=== PATIENT | female | born 1985 | race Caucasian/White ===

== ENCOUNTER 2018-06-24 22:31 | Inpatient (IN) | payer OTHER ==
[2018-06-24] MEDS ORDERED: Adacel (T-DAP) 0.5 ML SYRINGE ONE (22:35)
[2018-06-24] MEDS ORDERED: CEFAZOLIN 2 GM/50 ML BAG ONE (22:35)
[2018-06-24] MEDS ORDERED: Fentanyl 100 MCG/2 ML VIAL ONE ×2 (22:43→23:14)
[2018-06-24] MEDS ORDERED: KETAMINE 100 MG/ML (5ML VIAL) ONE (22:45)
[2018-06-24 22:50] LABS: #Lymphocytes 1.4 thou/uL (1.20-3.40); #Monocytes 0.5 thou/uL (0.11-0.59); #Neutrophils 6.3 thou/uL (1.40-6.50); %Basophils 0.2 % (0.0-1.0); %Eosinophils 0.4 % (0.0-10.0); %Monocytes 5.8 % (0.0-10.0); %Neutrophils 76.6 % (42.0-75.0); Hemoglobin 12.4 g/dL (12.0-16.0); Mean Corpuscular HGB CONC 33.7 g/dL (32.0-36.0); Mean Corpuscular Hemoglobin 32.3 pg (27.0-31.0); Mean Corpuscular Volume 95.9 fL (78.0-98.0); Mean Platelet Volume 6.4 fL (7.4-10.4); Platelet Count 286 thou/uL (130-400); RBC Distribution Width 11.2 % (11.5-14.5); Red Blood Cell (RBC) Count 3.83 mill/uL (4.20-5.40); White Blood Cell (WBC) Count 8.2 thou/uL (4.8-10.8)
[2018-06-24 22:55] LABS: Prothrombin Time 13.4 SEC (12.0-14.7)
[2018-06-24 22:56] LABS: BHCG - Serum Negative (NEGATIVE); PTT 20.3 SEC (22.9-36.1); Pregs Control Background? CLEAR/WHITE (CLR/WHITE); Pregs Control Bar Appear? YES (CONTROL BAR)
[2018-06-24 23:13] LABS: ALT (SGPT) 21 U/L (8-55); AST (SGOT) 28 U/L (5-34); Albumin 4.5 g/dL (3.5-5.0); Alcohol Less than 10 mg/dL (Less than 10); Alkaline Phosphatase 44 U/L (40-150); Anion Gap 14 mmol/L (10-20); BUN (Urea Nitrogen) 8 mg/dL (7.0-18.7); Bilirubin, Total 0.2 mg/dL (0.2-1.2); Calc. Creatinine Clearance 0 mL/min (70-130); Calcium 9.3 mg/dL (7.8-10.44); Carbon Dioxide 20 mmol/L (22-29); Chloride 109 mmol/L (98-107); Estimated GFR-MDRD Greater than 90; Globulin 2.8 g/dL (2.4-3.5); Glucose 125 mg/dL (70-105); Lipase 27 U/L (8-78); Potassium 3.1 mmol/L (3.5-5.1); Protein, Total 7.3 g/dL (6.0-8.3); Sodium 140 mmol/L (136-145)
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
[2018-06-24] MEDS ORDERED: Neomycin-Polymyxin 1 ML AMP ONE (23:28)
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
[2018-06-24] MEDS ORDERED: Gentamicin Sulfate 100 MG in Premix Bag 1 BAG IVPB SCH (23:45)
[2018-06-25] MEDS ORDERED: Meperidine HCl/PF 25 MG/ML VIAL SLOW IVP PRN (00:55)
[2018-06-25] MEDS ORDERED: Ondansetron HCl/PF 4 MG/2 ML Vial IVP PRN (00:55)
[2018-06-25] MEDS ORDERED: Promethazine HCl 25 MG/ML VIAL IM PRN (00:55)
[2018-06-25] MEDS ORDERED: Promethazine HCl 25 MG/ML VIAL SLOW IVP PRN (00:55)
[2018-06-25] MEDS ORDERED: Bupivacaine HCl 0.5%/Epinephrine 1:200,000/PF 30 ml Vial ONE (01:31)
[2018-06-25] MEDS ORDERED: Fentanyl 100 MCG/2 ML VIAL ONE (03:10)
[2018-06-25] MEDS ORDERED: Morphine 2 MG/ML SYRINGE SLOW IVP PRN (05:04)
[2018-06-25] MEDS ORDERED: Morphine 10 MG/ML VIAL SLOW IVP PRN (05:05)
[2018-06-25] MEDS ORDERED: Ondansetron PF 4 MG/2 ML Vial IVP PRN (05:05)
[2018-06-25] MEDS ORDERED: Acetaminophen 500 MG TAB PO PRN ×2 (05:06→05:07)
[2018-06-25] MEDS ORDERED: HYDROcodone/Acetaminophen 10/325 mg Tablet PO PRN (05:06)
[2018-06-25] MEDS: Ketorolac Tromethamine 30 MG/ML VIAL IVP SCH ×3 (05:44→18:19)
[2018-06-25] MEDS: Sodium Chloride 0.9% 1,000 ML IV SCH ×2 (05:46→18:23)
[2018-06-25 06:58] VITALS: BMI 21.6
[2018-06-25] MEDS: CEFAZOLIN 2 GM/50 ML-DEXTROSE 2 GM in Premix Bag 1 BAG IVPB SCH ×3 (07:18→21:35)
[2018-06-25] MEDS: HYDROcodone/Acetaminophen 10/325 mg Tablet PO PRN ×2 (07:19→12:44)
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
--- NOTE | 2018-06-25 07:52 | OP ---
DATE OF PROCEDURE: 06/25/2018 PREOPERATIVE DIAGNOSIS: Open lateral fracture dislocation of the right ankle. POSTOPERATIVE DIAGNOSIS: Open lateral fracture dislocation of the right ankle. PROCEDURES PERFORMED: 1. Irrigation and debridement of the open right ankle. 2. Open reduction and internal fixation of bimalleolar fracture of the right ankle. ANESTHESIA: General. TECHNIQUE: The patient was given preoperative IV antibiotics, taken to the operating room, and placed in the supine position. Satisfactory general anesthesia was performed. The right foot, ankle, and leg were sterilely prepped and draped in a usual fashion. After exsanguination of tourniquet, the proximal right calf was raised to 250 mmHg. The patient had a curvilinear laceration on the medial aspect of the ankle, where the medial malleolus was protruding through the skin. There was some dirt in the wound, which was physically picked out and also the ankle joint and the medial aspect of the ankle was copiously irrigated using antibiotic solution with high-speed straddle carrier operator. The medial malleolar fracture was then reduced and internally fixed with three 4.0 cannulated screws. This was all performed under fluoroscopic visualization. A longitudinal incision was made on the lateral aspect of the ankle and periosteal elevation was performed in the distal shaft. There was somewhat of comminution in the very distal aspect of the fibula that the periosteum was left intact and a 3-hole Synthes locking distal fibular plate was used for internal fixation of the lateral malleolus using two 2.7 cortical screws in the shaft. The most proximal screw in the shaft was 2.7 locking screw and there were four 2.7 locking screws distally. Again, this was all performed under fluoroscopic visualization using the C-arm. This showed good reduction of the ankle mortise. Wounds again were copiously irrigated with antibiotic solution and then closed using 2-0 Vicryl for the fat and subcutaneous tissue, and the skin was closed with 3-0 Rapide. The wounds were then infiltrated with a total of 30 mL of 0.5% Marcaine with epinephrine. Sterile dressing was applied. The tourniquet was released. The patient was awakened, extubated, and transported to recovery room in stable condition. ESTIMATED BLOOD LOSS: None. COMPLICATIONS: None. TOURNIQUET TIME: 80 minutes. Job ID: [id number]
[2018-06-25] MEDS ORDERED: Gentamicin Sulfate 100 MG in Premix Bag 1 BAG IVPB SCH ×2 (08:00→17:15)
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
[2018-06-25] MEDS ORDERED: Ketorolac Tromethamine 30 MG/ML VIAL ONE (14:41)
[2018-06-25] MEDS ORDERED: PROPOFOL 200 MG/20 ML VIAL ONE (14:41)
[2018-06-25] MEDS ORDERED: Succinylcholine Chloride 20 MG/ML 10 ml SYRINGE FS ONE (14:41)
[2018-06-25] MEDS ORDERED: ePHEDrine/0.9% NaCl/PF SYRINGE 50 mg/10 ml ONE (14:41)
[2018-06-25] MEDS ORDERED: PHENYLEPHRINE-NS 100 MCG/ML 10 ML SYRINGE ONE (14:41)
[2018-06-25] MEDS ORDERED: Dexamethasone 20 MG/5 ML VIAL ONE (14:41)
[2018-06-25] MEDS ORDERED: Lidocaine 1% PF 5 ML VIAL ONE (14:41)
[2018-06-25] MEDS ORDERED: Ondansetron PF 4 MG/2 ML Vial ONE (14:41)
[2018-06-25] MEDS ORDERED: Fluconazole 100 MG TAB PO SCH (15:00)
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
[2018-06-25] MEDS ORDERED: Milk Of Magnesia 30 ML UDCUP PO PRN (17:30)
[2018-06-25] MEDS: Promethazine 25 MG TAB PO PRN (18:27)
[2018-06-25] MEDS: Senokot 8.6 MG TAB PO SCH (18:27)
[2018-06-26] MEDS: HYDROcodone/Acetaminophen 10/325 mg Tablet PO PRN ×3 (00:33→12:44)
[2018-06-26] MEDS: Ketorolac Tromethamine 30 MG/ML VIAL IVP SCH ×3 (00:35→12:52)
[2018-06-26] MEDS: Promethazine 25 MG TAB PO PRN (02:28)
[2018-06-26] MEDS: Sodium Chloride 0.9% 1,000 ML IV SCH ×2 (02:33→10:01)
[2018-06-26] MEDS ORDERED: Polyethylene Glycol 3350 17 GM Packet PO SCH (09:00)
[2018-06-26] MEDS ORDERED: Fluconazole 100 MG TAB PO SCH (09:00)
[2018-06-26] MEDS: Senokot 8.6 MG TAB PO SCH (09:56)
--- NOTE | 2018-06-26 11:07 | DIS ---
DATE OF ADMISSION: 06/25/2018 DATE OF DISCHARGE: 06/26/2018 ADMIT DIAGNOSIS: Right open ankle fracture. DISCHARGE DIAGNOSIS: Right open ankle fracture. PROCEDURES: ORIF, washout, right open ankle fracture by Dr. Naik without complication. CONDITION ON DISCHARGE: Improved. STAFF: Dr. Cornelius. HOSPITAL COURSE: On postop day #2, the patient is doing well. She is complaining of some mild chest pain with deep inspiration and soreness all over. She has no dizziness. She has been up with physical therapy. She is tolerating regular food. She has had a bowel movement. She is urinating without difficulty. PHYSICAL EXAMINATION: VITAL SIGNS: She is afebrile. Vital signs are stable. CHEST: Clear. HEART: Regular rate and rhythm. ABDOMEN: Soft, nontender. Pelvis is stable. EXTREMITIES: No lower extremity edema or ischemia. Right lower extremity is dressed. ASSESSMENT: Postop irrigation, debridement, and fixation of right open ankle fracture. PLAN: Likely home today after Dr. Naik sees. We will defer pain medicine prescription to him. No need to follow up in the Trauma Clinic. Job ID: [id number]
--- NOTE | 2018-06-26 11:52 | PRG ---
DATE OF SERVICE: 06/25/2018 SUBJECTIVE: The patient is 12-hours status post ORIF with irrigation and debridement of the right open bimalleolar fracture dislocation of her right ankle. The patient is tolerating her boot well. She was able to get up out of bed and work with physical therapy utilizing crutches. The patient understands that she needs to be strictly nonweightbearing on the right foot. OBJECTIVE: VITAL SIGNS: The patient has been afebrile. Her vital signs have been stable. Her blood pressure is 121/58. EXTREMITIES: The boot is in good position. The patient is able to flex and extend all of her toes well. There is decreased sensation to light touch over the dorsum of the right foot. ASSESSMENT AND PLAN: The patient will need to continue to work with physical therapy. Again, I stressed with her that she needs to be nonweightbearing on the right foot and allow the fractures to heal. The patient is already controlling the pain with p.o. medications, so that will not be a problem as far as holding her up from discharge. I would like to finish out the prophylactic antibiotics that the patient has been given and will be given and then have her work with therapy to try to be as stable as possible when she does leave. Probable discharge date is tomorrow. Job ID: [id number]
[2018-06-26 12:18] VITALS: BP 108/56; TEMP 98.3
--- NOTE | 2018-06-27 03:02 | DIS ---
DATE OF ADMISSION: 06/25/2018 DATE OF DISCHARGE: 06/26/2018 HISTORY OF PRESENT ILLNESS: Please see admission history and physical. HOSPITAL COURSE: The patient was brought to the emergency room. She was found to have an open lateral fracture dislocation of the right ankle. The patient was given IV antibiotics in the emergency room. She was taken to the operating room, where she underwent irrigation and debridement of the right ankle as well as open reduction and internal fixation of the bimalleolar fracture. She was placed in a tall boot and was instructed on by physical therapy on crutches. She is to be nonweightbearing on the right foot until the fractures have healed, which will take at least 2 months. The patient required IV pain medicine at first out of surgery, but by day of discharge was able to control the pain with p.o. medications. She had some nausea, but this was relieved with Phenergan. DISCHARGE DIAGNOSIS: Open bimalleolar lateral fracture dislocation of the right ankle. DISCHARGE MEDICATIONS: 1. [place] 10 one every 6 hours as needed for pain, #60. 2. Phenergan 25 mg 1 every 6 hours as needed for nausea and vomiting, 20 with 1 refill. Stressed multiple times that the patient needs to be nonweightbearing on the right foot. She and her mother were both instructed on how to change the dressing. She can follow up with me in 2 weeks. If she decides to see an orthopedist closer at home, then she also can see that orthopedist in 2 weeks. Job ID: [id number]
--- NOTE | 2018-06-30 12:44 | EKG ---
Test Reason : Blood Pressure : / mmHG Vent. Rate : 101 BPM Atrial Rate : 101 BPM P-R Int : 134 ms QRS Dur : 074 ms QT Int : 382 ms P-R-T Axes : 074 079 059 degrees QTc Int : 495 ms Sinus tachycardia Possible Left atrial enlargement Borderline ECG Confirmed by JAH RODRIGUEZ ([id number]), index editor NANCY REDDING ([id number]) on 06/30/2018 12:44:18 PM Referred By: Confirmed By:JAH RODRIGUEZ
== END 2018-06-26 14:32 | disposition home or self-care (01) | DRG 494 ==
LOC: ERS 22:31 → SDC/OP 06-25 00:02 → 3SE 06-25 03:04 → OBSVTOIN 06-25 03:04
PROVIDERS: ADMIT Surgery; ATTEND Surgery
PROC: 0QSG04Z Reposition Right Tibia with Internal Fixation Device, Open Approach (ICD-10-PCS; principal; 2018-06-25)
PROC: 0QSJ04Z Reposition Right Fibula with Internal Fixation Device, Open Approach (ICD-10-PCS; 2018-06-25)
DX: S82.841B Displaced bimalleolar fracture of right lower leg, initial encounter for open fracture type I or II (principal); Z88.0 Allergy status to penicillin; V44.5XXA Car driver injured in collision with heavy transport vehicle or bus in traffic accident, initial encounter
CPT/HCPCS: 29515; 70450; 71045; 72125; 76001; 80053; 80307; 83690; 84703; 85025; 85610; 90471; 90715; 93005; 94760; 96365; 96374; 96375; 99152; C1713; G0390; G8978-GP-CK; G8978-GP-CM; G8979-GP-CI; G8979-GP-CK; J0670; J1100; J1580; J1885; J2001; J2405; J2704; J3010